=== PATIENT | male | born 1950 | race Caucasian/White ===

== ENCOUNTER → 2017-08-18 | Outpatient (CLI) | payer MEDICARE, OTHER ==
[~2017-08-18] MED LIST: ASPI-757 PO; ATOR40TA69 PO; BLOO-1511 MC; BLOO-960 MC; FERR324T16 PO; FINA5TAB67 PO; FLU180SY9 IM; GABA-549 PO; GLIM1TAB25 PO; INSU100I30 SQ; LANC-714 MC; METF-410 PO; METF500T4 PO; NPH,100I SC; NPH,100V12 SQ; PEG4000S14 PO; SULF-198 PO; SYRI-1525 MC; TAMS0.4C25 PO
--- NOTE | 2017-08-18 13:41 | RADIOLOGY IMAGING REPORT ---
FACILITY: [facility] PATIENT NAME: Sally Hoffman : 1950 MR: [id number] V: [id number] EXAM DATE: ORDERING PHYSICIAN: SHELLI ROMAN TECHNOLOGIST: Location: [facility] - [place] Patient: Sally Hoffman : 1950 Visit/Account:[id number] Date of Sevice: 08/18/2017 EXAMINATION: Abdominal ultrasound complete HISTORY: Right upper quadrant and right lower quadrant pain, history of bilateral hydronephrosis, b ladder retention with self-catheterization COMPARISON: Renal ultrasound February 24, 2017 FINDINGS: Gallbladder: No stones, wall thickening, pericholecystic fluid or sonographic Red sign. Liver: Negative. Common duct: Normal measuring 2.4 mm. Pancreas: Negative. Spleen: Normal in size and echogenicity measuring 10.2 cm in length. Kidneys: Normal in size and echogenicity, the right measures 11.1 cm in length, and the left 10.1 cm . No hydronephrosis. Resistive index on the right 0.56 on the left 0.56 Upper abdominal aorta and IVC: Negative. Ascites: None. IMPRESSION: Normal abdominal ultrasound. Report Dictated By: Kirsty Cruz MD at 08/18/2017 1:33 PM Report E-Signed By: Kirsty Cruz MD at 08/18/2017 1:37 PM WSN:[email or web address]
--- NOTE | 2017-08-18 13:43 | RADIOLOGY IMAGING REPORT ---
FACILITY: [facility] PATIENT NAME: Sally Hoffman : 1950 MR: [id number] V: [id number] EXAM DATE: ORDERING PHYSICIAN: SHELLI ROMAN TECHNOLOGIST: Location: [facility] - [place] Patient: Sally Hoffman : 1950 Visit/Account:[id number] Date of Sevice: 08/18/2017 US SINGLE ORGAN HISTORY: Right lower quadrant pain for several days COMPARISON: None. FINDINGS: Multiple images of the anterior right lower quadrant did not demonstrate the appendix. Fluid-filled peristalsing bowel was identified. There is no demonstration of free fluid in this location or focal mass IMPRESSION: There is no demonstration of a focal mass or free fluid in the right lower quadrant. The appendix wa s not visualized. If acute appendicitis is of strong clinical concern CT is recommended Report Dictated By: Kirsty Cruz MD at 08/18/2017 1:37 PM Report E-Signed By: Kirsty Cruz MD at 08/18/2017 1:39 PM MAYLINN:JAYDA
--- NOTE | 2017-08-18 14:13 | RADIOLOGY IMAGING REPORT ---
FACILITY: [facility] PATIENT NAME: Sally Hoffman : 1950 MR: [id number] V: [id number] EXAM DATE: ORDERING PHYSICIAN: SHELLI ROMAN TECHNOLOGIST: Location: [facility] - [place] Patient: Sally Hoffman : 1950 Visit/Account:[id number] Date of Sevice: 08/18/2017 bladder HISTORY: Bladder retention, self-catheterization COMPARISON: February 24, 2017 FINDINGS: The urinary bladder volume was 292 mL. The bladder wall was thickened and irregular with trabeculati on. Floating Debris was noted within the bladder. Bilateral ureteral jets were identified. Prostat e gland appear prominent and contain calcifications. The post void bladder residual was 3 mL IMPRESSION: Bladder wall is thickened irregular and trabeculated. Floating debris was noted within the bladder Prominent prostate gland containing calcifications Post void bladder residual 3 mL Report Dictated By: Kirsty Cruz MD at 08/18/2017 2:07 PM Report E-Signed By: Kirsty Cruz MD at 08/18/2017 2:09 PM WSN:[email or web address]
== END ==
LOC: US 01:09
PROVIDERS: ATTEND Urology
DX: R10.11 Right upper quadrant pain (principal); N42.89 Other specified disorders of prostate; N32.89 Other specified disorders of bladder
CPT/HCPCS: 76700; 76705

== ENCOUNTER → 2017-08-24 | Outpatient (CLI) | payer MEDICARE, OTHER ==
[~2017-08-24] MED LIST changes: +LEVO750T44 PO; +PREG50CA48 PO
== END ==
LOC: LAB 14:55
PROVIDERS: ATTEND Emergency Medicine
DX: R82.90 Unspecified abnormal findings in urine (principal); B96.89 Other specified bacterial agents as the cause of diseases classified elsewhere
CPT/HCPCS: 81001; 87088

== ENCOUNTER → 2017-11-23 | Outpatient (CLI) | payer MEDICARE, OTHER ==
[~2017-11-23] MED LIST changes: +LEVO-85 PO; +PNEU0.5D3 IM
== END ==
LOC: LAB 14:48
PROVIDERS: ATTEND Emergency Medicine
DX: R39.9 Unspecified symptoms and signs involving the genitourinary system (principal); A49.01 Methicillin susceptible Staphylococcus aureus infection, unspecified site
CPT/HCPCS: 87077; 87088; 87186

== ENCOUNTER 2017-12-14 16:15 | Emergency (ER) | payer MEDICARE, OTHER ==
--- NOTE | 2017-12-14 16:29 | ER Report ---
History and Physical Time Seen By MD: 16:29 (OTILIO GONZALEZ DO) HPI/ROS CHIEF COMPLAINT: sorethroat HISTORY OF PRESENT ILLNESS: Pt started 8 days ago with sorethroat, nasal congestion, chills. Pt states went to pcp today when started feeling dizzy and tired. Dr. Ortiz did a strep screen which was positive. Pt was sent to emergency room for fluids due to orthostatic 120/79 to 88/66 in office. Pt denies chest pain or abd pain. Pt admits that he has not been eating or drinking much since the pain started. REVIEW OF SYSTEMS: Gen: No chills, ?fever HEENT: + sorethroat, + congestion Respiratory: No cough, no dyspnea. Cardiovascular: No chest pain, no palpitations. Gastrointestinal: No vomiting, no abdominal pain. Musculoskeletal: No back pain. Neuro: + dizziness (JUAN CROCKYOTILIO Willard DO) Allergies: Coded Allergies: tetracycline (Verified Allergy, Unknown, 05/03/17) Home Meds Active Scripts Amoxicillin 500 Mg Tab (AMOXICILLIN 500 MG TAB) 500 Mg Tablet, 1 TAB PO BID, # 20 TAB Prov:OTILIO GONZALEZ DO 12/14/17 Nph, Human Insulin Isophane (NOVOLIN N) 100 Unit/1 Ml Vial, 10-14 UNIT SQ BID, # 2 VIAL 5 Refills Prov:JOVON JACKSON MD 11/23/17 Atorvastatin Calcium (ATORVASTATIN CALCIUM) 40 Mg Tablet, 1 TAB PO QDAY, #90 TAB 3 Refills Prov:JOVON JACKSON MD 10/11/17 Tamsulosin Hcl (FLOMAX) 0.4 Mg Cap.er.24h, 1 CAP PO DAILY, #90 CAP 3 Refills Prov:JOVON JACKSON MD 08/24/17 Blood Sugar Diagnostic (GLUCOSE TEST STRIP) 1 Each Strip, 1 EACH MC DAILY, #100 STRIP 11 Refills Prov:JOVON JACKSON MD 06/22/17 Syringe & Needle,Insulin,1 Ml (INSULIN SYRINGE) 1 Each Disp.syrin, EACH MC, #60 inject insulin subq BID Prov:JOVON JACKSON MD 05/12/17 Blood-Glucose Meter (BLOOD GLUCOSE METER) 1 Each Each, EACH MC, #1 check blood sugar before meals and before bedtime. Prov:JOVON JACKSON MD 05/12/17 Lancets (LANCETS) 1 Each Each, EACH MC DAILY, #30 9 Refills Prov:JOVON JACKSON MD 05/12/17 Metformin Hcl (METFORMIN HCL ER) 500 Mg Tab.er.24, 1 TAB PO QDAY, #30 TAB 11 Refills Prov:JOVON JACKSON MD 05/11/17 Reported Medications Finasteride (FINASTERIDE) 5 Mg Tablet, 5 MG PO QDAY 07/21/17 Aspirin (ASPIRIN) 325 Mg Tablet, 1 TAB PO DAILY, TAB 05/03/17 Discontinued Scripts Levofloxacin 500 Mg Tab (LEVAQUIN 500 MG TAB) 500 Mg Tablet, 500 MG PO DAILY, # 5 TAB Prov:JOVON JACKSON MD 11/23/17 Pregabalin (LYRICA) 50 Mg Capsule, 50 MG PO TID, #100 CAPSULE 5 Refills Prov:JOVON JACKSON MD 08/24/17 Ferrous Sulfate (FERROUS SULFATE) 324 Mg Tablet.dr, 1 TAB PO QDAY, #90 TAB 0 Refills Prov:JOVON JACKSON MD 06/02/17 Past Medical/Surgical History Pmhx: dm Pshx: TA (OTILIO GONZALEZ DO) Reviewed Nurses Notes: Yes Old Medical Records Reviewed: Yes (OTILIO GONZALEZ DO) Hx Smoking: No Smoking Status: Never Smoker Hx Substance Use Disorder: No Hx Alcohol Use: No (OTILIO GONZALEZ DO) Constitutional Vital Sign - Last 24 Hours 12/14/17 12/14/17 12/14/17 12/14/17 16:22 16:23 16:24 16:25 Pulse ? 12/14/17 12/14/17 12/14/17 12/14/17 16:26 16:27 16:27 16:28 Temp 98.4 Pulse ??? 87 ? Resp 16 B/P (MAP) 130/88 (102) 124/79 Pulse Ox 93 O2 Delivery Room Air 12/14/17 12/14/17 12/14/17 12/14/17 16:29 16:30 16:31 16:32 Pulse ??? 84 89 86 Resp 33 29 38 55 B/P (MAP) 124/79 (94) Pulse Ox 89 89 12/14/17 12/14/1712/14/18 12/14/17 16:33 16:34 16:35 16:36 Pulse 106 107 110 87 Resp 15 25 28 16 B/P (MAP) 91/62 (72) 78/53 (61) 141/90 (107) 124/79 (94) Pulse Ox 96 86 93 93 O2 Delivery Room Air 12/14/1718 18 12/14/17 16:36 16:36 16:37 16:37 Pulse 86 103 81 106 Resp 37 11 16 B/P (MAP) 91/62 (72) 78/53 (61) Pulse Ox 95 95 95 87 O2 Delivery Room Air Room Air 12/14/17 12/14/17 12/14/17 12/14/17 16:38 16:39 16:40 16:41 Pulse 82 81 88 87 Resp 9 22 Pulse Ox 94 91 96 94 12/14/1712/14/18 12/14/17 16:42 16:43 16:44 16:45 Pulse 84 82 83 88 Resp 24 16 21 Pulse Ox 92 95 92 97 12/14/1712/14/18 12/14/17 12/14/17 16:46 16:47 16:48 16:49 Pulse 85 83 81 82 Resp 27 22 0 8 B/P (MAP) 112/78 (89) Pulse Ox 95 93 94 86 12/14/17 12/14/17 12/14/17 12/14/17 16:50 16:51 16:52 16:53 Pulse 83 88 85 86 Resp 21 Pulse Ox 85 88 89 95 12/14/1718 12/14/18 12/14/17 16:54 16:55 16:56 16:57 Pulse 84 87 81 79 Resp 25 25 18 Pulse Ox 96 96 96 97 18 18 //18 12/14/17 16:58 16:59 17:00 17:01 Pulse 81 83 81 82 Resp 11 10 29 19 B/P (MAP) 117/77 (90) Pulse Ox 90 84 87 86 //18 5//18 5//18 12/14/17 17:02 17:03 17:04 17:05 Pulse 83 81 80 81 Resp 28 9 8 13 Pulse Ox 88 89 90 89 //18 5/8/18 5//18 5/18 17:06 17:07 17:08 17:09 Pulse 82 80 80 80 Resp 20 8 24 6 Pulse Ox 90 91 90 91 5/8/18 5/8/18 5/8/18 5/18 17:10 17:11 17:12 17:13 Pulse 81 79 80 80 Resp 6 23 20 21 Pulse Ox 92 91 90 91 12/14/18 5//18 5//18 518 17:14 17:15 17:16 17:17 Pulse 81 84 83 85 Resp 30 46 21 24 Pulse Ox 92 95 95 97 12/14/18 5//18 5//18 18 17:18 17:19 17:20 17:21 Pulse 83 81 81 79 Resp 26 7 13 31 Pulse Ox 96 97 95 96 //18 5//18 5//18 5//18 17:22 17:23 17:24 17:25 Pulse 78 86 84 86 Resp 14 23 14 12 B/P (MAP) 117/77 (90) 121/86 (98) Pulse Ox 95 92 97 96 //18 5//18 5//18 518 17:26 17:27 17:28 17:33 Pulse 92 96 89 83 Resp 29 24 12 18 B/P (MAP) 87/51 (63) Pulse Ox 89 89 95 92 12/14/1712/14/18 5//18 /03/26 17:48 18:00 18:03 18:08 Pulse 85 88 88 Resp 22 15 19 B/P (MAP) 148/96 (113) Pulse Ox 91 94 90 12/14/18 5//18 5//18 5/18 18:09 18:10 18:11 18:12 Pulse 86 87 86 86 Resp 16 10 6 0 Pulse Ox 93 91 92 91 12/14/18 5//18 5//18 518 18:13 18:14 18:15 18:16 Pulse 86 86 88 87 Resp 5 30 29 25 Pulse Ox 91 92 91 92 12/14/18 5/18 5//18 518 18:17 18:18 18:19 18:20 Pulse 87 88 88 87 Resp 21 21 16 9 Pulse Ox 92 92 92 91 18 18 12/14/18 12/14/17 18:21 18:22 18:23 18:24 Pulse 87 89 87 88 Resp 16 11 29 18 Pulse Ox 93 93 92 93 18 12/14/18 5/18 18 18:25 18:26 18:27 18:28 Pulse 87 95 90 89 Resp 18 37 14 13 Pulse Ox 93 95 91 91 12/14/1718 18 18 18:29 18:30 18:31 18:32 Pulse 87 88 88 87 Resp 9 22 24 10 B/P (MAP) 144/91 (108) Pulse Ox 88 92 93 93 12/14/17 12/14/17 12/14/1718 18:33 18:34 18:35 18:36 Pulse 88 88 88 86 Resp 10 24 13 Pulse Ox 92 90 92 92 12/14/17 12/14/17 12/14/1718 18:37 18:38 18:39 18:40 Pulse 86 86 87 87 Resp 22 9 6 0 Pulse Ox 91 91 92 91 12/14/17 12/14/17 12/14/17 12/14/17 18:41 18:42 18:43 18:44 Pulse 88 87 90 89 Resp 9 9 12 29 B/P (MAP) 148/93 (111) 117/79 (92) Pulse Ox 90 90 90 95 12/14/17 12/14/17 12/14/17 12/14/17 18:45 18:46 18:47 18:48 Pulse 90 99 99 100 Resp 9 18 26 14 B/P (MAP) 84/61 (69) 70/50 (57) Pulse Ox 95 94 93 92 12/14/17 12/14/17 12/14/17 12/14/17 18:49 18:50 18:55 19:00 Pulse 106 104 90 Resp 16 18 B/P (MAP) 90/63 (72) 131/91 (104) Pulse Ox 92 92 94 12/14/17 12/14/17 12/14/17 12/14/17 19:10 19:25 19:30 19:40 Pulse 87 86 88 Resp 29 B/P (MAP) 127/79 (95) Pulse Ox 91 92 12/14/17 12/14/17 12/14/17 12/14/17 19:55 20:00 20:10 20:15 Pulse 85 85 85 Resp 22 B/P (MAP) 128/83 (98) Pulse Ox 92 92 91 (VENUS HUDSON MD) Physical Exam General Appearance: The patient is alert, has no immediate need for airway protection and no signs of toxicity. Eyes: Pupils equal and round no pallor or injection, EOMI ENT: + pharyngeal erythema without exudates, Mucous membranes are moist, TM are nl b/l Respiratory: There are no retractions, lungs are clear to auscultation. Cardiovascular: Regular rate and rhythm. pulses are equal and symmetrical Gastrointestinal: Abdomen is soft and non tender, no masses, bowel sounds normal, no guarding, no rigidity or rebound Neurological: Cranial nerves II-XII grossly intact, no sensory or motor loss Skin: Warm and dry, no rashes. Musculoskeletal: Neck is supple non tender, no vertebral tenderness Extremities are nontender, non swollen and have full range of motion. DIFFERENTIAL DIAGNOSIS: After history and physical exam differential diagnosis was considered for + for strep, dehydration (LAURORA,OTILIO V DO) Medical Decision Making Data Points Result Diagram: 12/14/17191212/14/171912 Laboratory Hematology Test 12/14/17 19:13 Red Blood Count 4.13 M/uL (4.00-5.60) Mean Corpuscular Volume 86.0 fL (80.0-96.0) Mean Corpuscular Hemoglobin 31.3 pg (26.0-33.0) Mean Corpuscular Hemoglobin Concent 36.4 g/dL (32.0-36.0) Red Cell Distribution Width 12.5 % (11.5-14.5) Mean Platelet Volume 7.6 fL (7.2-11.1) Neutrophils (%) (Auto) 78.8 % (39.4-72.5) Lymphocytes (%) (Auto) 12.2 % (17.6-49.6) Monocytes (%) (Auto) 7.5 % (4.1-12.4) Eosinophils (%) (Auto) 1.0 % (0.4-6.7) Basophils (%) (Auto) 0.5 % (0.3-1.4) Nucleated RBC Relative Count (auto) 0.0 /100WBC Neutrophils # (Auto) 6.9 K/uL (2.0-7.4) Lymphocytes # (Auto) 1.1 K/uL (1.3-3.6) Monocytes # (Auto) 0.7 K/uL (0.3-1.0) Eosinophils # (Auto) 0.1 K/uL (0.0-0.5) Basophils # (Auto) 0.0 K/uL (0.0-0.1) Nucleated RBC Absolute Count (auto) 0.00 K/uL Sodium Level 139 mmol/L (137-145) Potassium Level 3.9 mmol/L (3.5-5.0) Chloride Level 102 mmol/L (98-107) Carbon Dioxide Level 26 mmol/L (22-30) Blood Urea Nitrogen 33 mg/dl (9-21) Creatinine 0.90 mg/dl (0.66-1.25) Glomerular Filtration Rate Calc > 60.0 Random Glucose 127 mg/dl (75-110) Calcium Level 8.8 mg/dl (8.4-10.2) Chemistry Test 12/14/17 19:13 White Blood Count 8.7 k/uL (4.5-11.0) Red Blood Count 4.13 M/uL (4.00-5.60) Hemoglobin 12.9 g/dL (14.0-18.0) Hematocrit 35.5 % (42.0-52.0) Mean Corpuscular Volume 86.0 fL (80.0-96.0) Mean Corpuscular Hemoglobin 31.3 pg (26.0-33.0) Mean Corpuscular Hemoglobin Concent 36.4 g/dL (32.0-36.0) Red Cell Distribution Width 12.5 % (11.5-14.5) Platelet Count 233 K/uL (150-450) Mean Platelet Volume 7.6 fL (7.2-11.1) Neutrophils (%) (Auto) 78.8 % (39.4-72.5) Lymphocytes (%) (Auto) 12.2 % (17.6-49.6) Monocytes (%) (Auto) 7.5 % (4.1-12.4) Eosinophils (%) (Auto) 1.0 % (0.4-6.7) Basophils (%) (Auto) 0.5 % (0.3-1.4) Nucleated RBC Relative Count (auto) 0.0 /100WBC Neutrophils # (Auto) 6.9 K/uL (2.0-7.4) Lymphocytes # (Auto) 1.1 K/uL (1.3-3.6) Monocytes # (Auto) 0.7 K/uL (0.3-1.0) Eosinophils # (Auto) 0.1 K/uL (0.0-0.5) Basophils # (Auto) 0.0 K/uL (0.0-0.1) Nucleated RBC Absolute Count (auto) 0.00 K/uL Glomerular Filtration Rate Calc > 60.0 Calcium Level 8.8 mg/dl (8.4-10.2) (VENUS HUDSON MD) ED Course/Re-evaluation Clinical Indication for ER IV: Hydration, IV Access ED Course i suspect pt will require more then one liter of nss. will give two. Give first dose of abx IV and will recheck orthostatics. 12/14/2017 5:24:24 pm Signed out to Dr. Hudson pending second liter nss and orthostatics. Decision to Disposition Date: December 14, 2017 (OTILIO GONZALEZ DO) ED Course 12/14/2017 5:45:29 pm patient at this time from Dr. John. Patient essentially diagnosed with group A strep pharyngitis dehydration. Was feeling quite dizzy and was postural with positive orthostatic vital signs. He is received 1 L of fluid at this time with improvement in his vital signs. Plan will be 2nd liter of IV fluids and will discharge home on antibiotics. Decision to Disposition Date: December 14, 2017 Decision to Disposition Time: 18:30 (VENUS HUSDON MD) Re-evaluation I assumed care of this patient at shift change. On repeat evaluation after 1-1/ 2 L of fluids, the patient was still showing significant orthostatic changes going from sitting to standing. But then he would equilibrate and have a normal blood pressure. He still felt a little lightheaded with this but otherwise overall, felt he was doing better. After he completed 2 L, he had good resting blood pressures but was still showing orthostatic changes in blood pressure. At this time, given that he still had some symptoms of being lightheaded and the blood pressure changes I did opt to check electrolytes and a CBC given his diabetic history. Of note he was afebrile and subjectively still felt he was improving somewhat. Chemistry panel is reassuring. CBC is unremarkable. I continue to watch the patient for a while. His blood pressure seemed to improve without additional extra fluids. He felt that he was stable getting up and moving around as long as he went slowly. At this time, I think he is stable enough for discharge home. I would like him to do close follow-up and have suggested that he call his primary physician tomorrow and let them know how he is feeling. He is not to drive if he feels lightheaded. And certainly, he should return if it any time it feels like symptoms are worsening. Decision to Disposition Date: December 14, 2017 Decision to Disposition Time: 20:20 (HAILE FAJARDO MD) Depart Departure Latest Vital Signs Vital Signs Date Time Temp Pulse Resp B/P (MAP) Pulse Ox O2 Delivery O2 Flow Rate FiO2 12/14/17 20:15 85 22 91 12/14/17 20:00 128/83 (98) 12/14/17 16:37 Room Air 12/14/17 16:27 98.4 (VENUS HUDSON MD) Impression: Primary Impression: Strep pharyngitis Additional Impressions: ORTHOSTATIC HYPOTENSION Dehydration Disposition: HOME OR SELF-CARE Referrals: JOVON JACKSON MD (PCP) 2 Days New Scripts Amoxicillin 500 Mg Tab (AMOXICILLIN 500 MG TAB) 500 Mg Tablet 1 TAB PO BID, #20 TAB Prov: OTILIO GONZALEZ DO 12/14/17 Patient Instructions: Dehydration (ED), Strep Throat (DC) Problem Qualifiers OTILIO GONZALEZ DO December 14, 2017 16:29 VENUS HUDSON MD December 14, 2017 17:46 HAILE FAJARDO MD December 14, 2017 20:25
[2017-12-14] MEDS ORDERED: NS(*) 0.9% 1000 ML BAG 1,000 ML IV ONE ×2 (16:30→17:25)
[2017-12-14] MEDS ORDERED: cefTRIAXone 1 GM VIAL IVP ONE (17:00)
[2017-12-14] MEDS ORDERED: AMOX500T10 PO (17:26)
[2017-12-14 19:18] LABS: PLATELET COUNT, AUTOMATED 233 K/uL (150-450)
[2017-12-14 20:00] VITALS: BP 128/83
== END 2017-12-14 20:27 | disposition home or self-care (01) ==
LOC: ER 16:29
DX: J02.0 Streptococcal pharyngitis (principal); I95.1 Orthostatic hypotension; E86.0 Dehydration
CPT/HCPCS: 36415; 85025; 96361; 96374; 99284; J0696; J7030; 82310; 82374; 82435; 82565; 82947; 84132; 84295; 84520

== ENCOUNTER → 2018-05-18 | Outpatient (CLI) | payer MEDICARE, OTHER ==
[~2018-05-18] MED LIST changes: +AMOX500T10 PO; -METF-410 PO; +METF-450 PO
== END ==
LOC: LAB 09:54
PROVIDERS: ATTEND Emergency Medicine
DX: E11.9 Type 2 diabetes mellitus without complications (principal)
CPT/HCPCS: 36415; 83036

== ENCOUNTER → 2018-05-18 | Outpatient (CLI) | payer MEDICARE, OTHER | LOC: LAB 09:19 | PROVIDERS: ATTEND Urology | DX: R97.20 Elevated prostate specific antigen [PSA] (principal) | CPT/HCPCS: 36415; 84153 ==

== ENCOUNTER → 2018-05-31 | Outpatient (CLI) | payer MEDICARE, OTHER ==
[~2018-05-31] MED LIST changes: +ASPI81TA94 PO; +FLU180SY11 IM
== END ==
LOC: LAB 14:55
PROVIDERS: ATTEND Emergency Medicine
DX: E11.9 Type 2 diabetes mellitus without complications (principal)
CPT/HCPCS: 82043

== ENCOUNTER → 2018-07-04 | Outpatient (CLI) | payer MEDICARE, OTHER ==
[~2018-07-04] MED LIST changes: +LOSA50TA74 PO
== END ==
LOC: LAB 11:01
PROVIDERS: ATTEND Urology
DX: R97.20 Elevated prostate specific antigen [PSA] (principal)
CPT/HCPCS: 36415; 84154

== ENCOUNTER → 2018-09-27 | Outpatient (CLI) | payer MEDICARE, OTHER ==
[~2018-09-27] MED LIST changes: -LOSA50TA74 PO; +LOSA50TA80 PO; +METF-452 PO
== END ==
LOC: LAB 14:15
PROVIDERS: ATTEND Emergency Medicine
DX: E11.9 Type 2 diabetes mellitus without complications (principal)
CPT/HCPCS: 36415; 83036

== ENCOUNTER → 2018-10-04 | Outpatient (REF) | payer MEDICARE, OTHER | LOC: ZZSENDIN 12:00 | PROVIDERS: ATTEND Urology | DX: R97.20 Elevated prostate specific antigen [PSA] (principal) | CPT/HCPCS: 88305; 88344 ==

== ENCOUNTER → 2018-11-04 | Outpatient (CLI) | payer MEDICARE, OTHER | LOC: RESP 19:15 | PROVIDERS: ATTEND Emergency Medicine | DX: G47.33 Obstructive sleep apnea (adult) (pediatric) (principal); G47.61 Periodic limb movement disorder ==

== ENCOUNTER → 2018-11-16 | Outpatient (CLI) | payer MEDICARE, OTHER | LOC: RESP 21:01 | PROVIDERS: ATTEND Emergency Medicine | DX: G47.33 Obstructive sleep apnea (adult) (pediatric) (principal); G47.61 Periodic limb movement disorder; G47.36 Sleep related hypoventilation in conditions classified elsewhere ==